=== PATIENT | female | born 1975 | race Caucasian/White ===

== ENCOUNTER → 2023-10-08 11:15 | Outpatient (CLI) | payer MEDICAID, SELFPAY ==
--- NOTE | 2023-10-08 11:21 | MM_ITS ---
PROCEDURE INFORMATION: Exam: Bilateral Screening 3D Mammography Exam date and time: 10/08/2023 11:13 AM Age: 48 years old Clinical indication: Screening mammogram TECHNIQUE: Imaging protocol: Bilateral Screening tomosynthesis and 2D mammography including computer-aided detection (CAD) when performed. COMPARISON: DIG MAMMO BILAT SCREENING 08/09/2013 2:24 PM FINDINGS: MAMMOGRAPHY: Breast composition: The breast is heterogeneously dense, which may obscure small masses. Mass: None. Architectural distortion: No new or suspicious architectural distortion. Calcifications: No new or suspicious calcifications are present Asymmetric density: No new or suspicious asymmetric density is present Skin thickening: None. Axillary adenopathy: None. IMPRESSION: No mammographic evidence of malignancy. Recommend annual screening mammography unless otherwise clinically indicated. ASSESSMENT: BI-RADS category 1: Negative
== END ==
PROVIDERS: PCP Emergency Medicine; Visit Provider Emergency Medicine
DX: Z12.31 Encounter for screening mammogram for malignant neoplasm of breast (principal)
CPT/HCPCS: 77063; 77067

== ENCOUNTER 2024-04-25 15:57 | Outpatient (CLI) | payer MEDICAID, SELFPAY ==
[2024-04-25 15:57] LABS: Microscopic, Urine URINE MICROSCOPIC (MICROSCOPIC)
[2024-04-25 17:44] LABS: Appearance,Urine CLEAR (Clear); Bilirubin,Urine Negative (Negative); Blood, Urine Negative (Negative); Color,Urine YELLOW (Yellow); Glucose,Urine (UA) Negative (Negative); Ketones,Urine Negative (Negative); Leukocyte Esterase,Urine 2+ (Negative); Nitrate,Urine POSITIVE (Negative); Protein,Urine Negative (Negative); Urobilinogen,Urine 0.2 EU/dl (0.2)
[2024-04-25 18:38] LABS: WBC,Urine 20-50 #/hpf (0-3)
[2024-04-25 18:39] LABS: Bacteria,Urine 4+ /lpf; RBC,Urine Occasional #/hpf (0-3)
[2024-04-30 19:08] LABS: Atopobium vaginae Low - 0 Score (.); BVAB2 Low - 0 Score (.); Candida albicans NAA Negative (Negative); Candida glabrata Negative (Negative); Chlamydia Trachomatis NAA Negative (Negative); HSV 1 NAA Negative (Negative); HSV 2 NAA Negative (Negative); Megasphaera 1 Low - 0 Score (.); Neisseria gonorrhoeae NAA Negative (Negative); Trich vag NAA Negative (Negative)
== END 2024-04-25 23:59 | disposition home or self-care (01) ==
LOC: LAB.DROPOF 15:57
PROVIDERS: PCP Urology; Visit Provider Urology
DX: N39.44 Nocturnal enuresis (principal); N39.41 Urge incontinence; N39.0 Urinary tract infection, site not specified
CPT/HCPCS: 81001; 87086; 87491; 87529; 87591; 87661; 87798; 87801

== ENCOUNTER 2024-05-03 09:27 | Outpatient (CLI) | payer MEDICAID, SELFPAY ==
--- NOTE | 2024-05-03 09:28 | US_ITS ---
FINAL REPORT CLINICAL HISTORY: UTI COMPARISON: None FINDINGS: ULTRASOUND BLADDER WITH POST VOID RESIDUAL Bladder volumes were estimated based on 3 dimensional measurements, pre- and postvoid. Prevoid bladder volume: 490 mls Postvoid bladder volume: 90 mls The bilateral jets are visualized. IMPRESSION: Estimated bladder volumes as above with small postvoid residual . Reviewed, Interpreted and Dictated by Alonso Cartagena III, MD Transcribed by Mandy Guzmán Authenticated and [facility]
--- NOTE | 2024-05-03 09:28 | US_ITS ---
FINAL REPORT CLINICAL HISTORY: .UTI COMPARISON: None FINDINGS: RENAL ULTRASOUND Ultrasound images of the kidneys were obtained. The right kidney measures 8.9 cm in length. It is normal echogenicity. There is mild hydronephrosis. The left kidney measures 10.1 cm in length. It is normal echogenicity. There is no hydronephrosis. IMPRESSION: Mild right hydronephrosis. Reviewed, Interpreted and Dictated by lAonso Cartagena III, MD Transcribed by Mandy Guzmán Authenticated and . [facility]
== END 2024-05-03 23:59 | disposition home or self-care (01) ==
LOC: RAD 09:28
PROVIDERS: PCP Urology; Visit Provider Urology
DX: N39.0 Urinary tract infection, site not specified (principal)
CPT/HCPCS: 76770; 76857

== ENCOUNTER 2024-06-01 07:07 | Outpatient (CLI) | payer MEDICAID, SELFPAY ==
--- NOTE | 2024-06-01 07:10 | CT_ITS ---
FINAL REPORT TECHNIQUE: Axial CT images of the abdomen and pelvis were obtained before and after the administration of IV contrast. This study was performed with techniques to keep radiation doses as low as reasonably achievable (ALARA). Individualized dose reduction techniques using automated exposure control or adjustment of mA and/or kV according to the patient's size were employed. CLINICAL HISTORY: Right sided abd pain COMPARISON: None FINDINGS: Abdomen: Right lower lobe scarring and pleural thickening is present. There are calcified granulomas seen in both lung bases. The heart is normal in size. The liver has an unremarkable appearance, without evidence of mass or biliary duct dilatation. The gallbladder is not visualized, and may be either surgically absent or collapsed. The spleen is unremarkable. No adrenal masses present. The pancreas has an unremarkable appearance. There is scarring in the upper pole of the right kidney with a few small parenchymal calcifications. No hydronephrosis is seen. Moderate vascular calcifications are present. There is no free fluid or adenopathy. No mass or abnormal fluid collection is seen. Precontrast images demonstrate no evidence of nephrolithiasis. Pelvis: The appendix is partially visualized and appears normal. The urinary bladder is unremarkable. No inflammatory process is seen. An IUD is present in the uterus. A moderate to large amount of stool is present in the colon. There is a small right inguinal hernia containing fat. There is no evidence of mass or adenopathy. There is no evidence of bowel obstruction. IMPRESSION: There is scarring present in the upper pole of the right kidney with small parenchymal calcifications but no evidence of hydronephrosis. The gallbladder is not well-visualized, and may be surgically absent or collapsed. Reviewed, Interpreted and Dictated by Alonso Cartagena III, MD Transcribed by Prudence Pisano Authenticated and [facility]
[2024-06-01 07:39] LABS: Blood Urea Nitrogen 20 mg/dl (7-17); Estimated Glomerular Filt Rate 37 ml/min (>60); GFR (African American) 44 ML/MIN (>60)
[2024-06-01] MEDS: SODIUM CHLORIDE 0.9% 10ML SYR (RAD ONLY) 10 ML IV (08:27)
[2024-06-01] MEDS: IOPAMIDOL-370 (76%);100ML BOTTLE 50 ML IV (08:27)
== END 2024-06-01 23:59 | disposition home or self-care (01) ==
LOC: RAD 07:10
PROVIDERS: PCP Urology; Visit Provider Urology
DX: N39.41 Urge incontinence (principal); R10.9 Unspecified abdominal pain
CPT/HCPCS: 36415; 74178; 82565; 84520; Q9967